=== PATIENT | male | born 1985 | race African-American/Black ===

== ENCOUNTER 2017-02-26 12:11 | Emergency (ER) | payer OTHER ==
--- NOTE | 2017-02-26 12:50 | EDM.PDOC ---
ED HPI GENERAL MEDICAL PROBLEM - General Chief Complaint: Skin Complaint Stated Complaint: BUMP ON RIGHT SIDE OF FACE Time Seen by Provider: 02/26/17 12:47 Source of Information: Reports: Patient History Limitations: Reports: No Limitations - History of Present Illness INITIAL COMMENTS - FREE TEXT/NARRATIVE: HISTORY AND PHYSICAL: []31-year-old male presenting with a lesion to the right side of his face History of Present Illness: []At does not complain of any pain to this area No weeping from the lesion Review of Systems: As per history of present illness and below otherwise all systems reviewed and negative. Past medical history: As per history of present illness and as reviewed below otherwise noncontributory. Surgical history: As per history of present illness and as reviewed below otherwise noncontributory. Social history: No reported history of drug or alcohol abuse. Family history: As per history of present illness and as reviewed below otherwise noncontributory. Physical exam: Alert and oriented male HEENT: Atraumatic, normocehpalic, pupils reactive, negative for conjunctival pallor or scleral icterus, mucous membranes moist, throat clear, neck supple, nontender, trachea midline. Right side of face cheek line firm nodule under the skin nontender upon palpation Lungs: Clear to auscultation, breath sounds equal bilaterally, chest non tender. Extremities: Atraumatic, negative for cords or calf pain. Neurovascular unremarkable. Neuro: Awake, alert, oriented. Cranial nerves II through XII unremarkable. Cerebellum unremarkable. Motor and sensory unremarkable throughout. Exam nonfocal. Diagnostics: [] Therapeutics: [] Impression: [Sebaceous cyst] Plan: [Moist heat may help to draw this to the surface will need to see a surgeon to have this removed] Definitive disposition and diagnosis as appropriate pending reevaluation and review of above. Onset: Gradual Duration: Day(s): Location: Reports: Face Severity: Mild - Related Data Allergies Allergy/AdvReac Type Severity Reaction Status Date / Time No Known Allergies Allergy Verified 02/26/17 12:46 Home Meds: Home Meds . [No Known Home Meds] 08/18/14 [History] Past Medical History - Past Health History Medical/Surgical History: Denies Medical/Surgical History Social & Family History - Tobacco Use Smoking Status *Q: Current Every Day Smoker Years of Tobacco use: 10 - Alcohol Use Days Per Week of Alcohol Use: 0 Number of Drinks Per Day: 2 Total Drinks Per Week: 0 - Recreational Drug Use Recreational Drug Use: No ED ROS GENERAL - Review of Systems Review Of Systems: ROS reveals no pertinent complaints other than HPI. ED EXAM, SKIN/RASH Exam: See Below (se dictation) Departure - Departure Time of Disposition: 12:49 Disposition: Home, Self-Care 01 Condition: Good Clinical Impression: Sebaceous cyst - Discharge Information Forms: ED Department Discharge
== END 2017-02-26 13:10 | disposition home or self-care (01) ==
LOC: MW.ED 12:11
CPT/HCPCS: 99282

== ENCOUNTER 2017-07-19 16:20 | Emergency (ER) | payer OTHER ==
--- NOTE | 2017-07-19 17:09 | EDM.PDOC ---
ED HPI GENERAL MEDICAL PROBLEM - General Chief Complaint: Upper Extremity Injury/Pain Stated Complaint: FALL/PAIN LT HAND Time Seen by Provider: 07/19/17 16:55 Source of Information: Reports: Patient History Limitations: Reports: No Limitations - History of Present Illness INITIAL COMMENTS - FREE TEXT/NARRATIVE: HISTORY AND PHYSICAL: History of present illness: [Patient comes to the emergency room complaining of pain to his left hand and index finger. He states that yesterday morning he punched a television which cut numerous areas to his index finger and hand. He complains of pain redness and swelling. He has not taken any medications for his symptoms. No medication allergies. He does not have diabetes or any medication allergies.] Review of systems: As per history of present illness and below otherwise all systems reviewed and negative. Past medical history: As per history of present illness and as reviewed below otherwise noncontributory. Surgical history: As per history of present illness and as reviewed below otherwise noncontributory. Social history: No reported history of drug or alcohol abuse. Family history: As per history of present illness and as reviewed below otherwise noncontributory. Physical exam: HEENT: Atraumatic, normocephalic. Left hand shows numerous old lacerations of varying length and depth to his left index finger and hand. Appear dirty, but dry. No drainage. Erythema and swelling is appreciated to second MCP joint. Sensation intact. Cap refill less than 2 seconds. Neuro: Awake, alert, oriented. Motor and sensory unremarkable throughout. Exam nonfocal. Diagnostics: [Left hand x-ray] Therapeutics: Bacitracin, Adacel Impression: [L hand injury L hand and index finger lacerations foreign body L index finger] Plan: [Discussed w/ patient that he has a foreign body present in his laceration, likely glass from TV screen, but no fracture seen on x-ray. Due to length of time from injury, will soak his hand in hibiclens, apply Bacitracin and wrap in gauze. Referral given to Dr. Casper Russo for hand evaluation early next week. Rx written for cephalexin 500mg (#30) si po TID 0 RF's. Tetanus updated in the ER.] Definitive disposition and diagnosis as appropriate pending reevaluation and review of above. Left Hand Pain Score (Numeric/FACES): 7 - Related Data Allergies Allergy/AdvReac Type Severity Reaction Status Date / Time No Known Allergies Allergy Verified 07/19/17 16:38 Home Meds: Home Meds . [No Known Home Meds] 08/18/14 [History] Past Medical History - Past Health History Medical/Surgical History: Denies Medical/Surgical History Social & Family History - Tobacco Use Smoking Status *Q: Current Some Day Smoker Years of Tobacco use: 15 Packs/Tins Daily: 0.2 - Caffeine Use Caffeine Use: Reports: None - Alcohol Use Days Per Week of Alcohol Use: 3 Number of Drinks Per Day: 2 Total Drinks Per Week: 6 - Recreational Drug Use Recreational Drug Use: No Review of Systems - Review of Systems Review Of Systems: ROS reveals no pertinent complaints other than HPI. ED EXAM, GENERAL - Physical Exam Exam: See Below Course - Vital Signs Last Recorded V/S: Last Vital Signs Temp 97.1 F 07/19/17 16:35 Pulse 75 07/19/17 16:35 Resp 16 07/19/17 16:35 BP 130/79 07/19/17 16:35 Pulse Ox 98 07/19/17 16:35 - Orders/Labs/Meds Orders: Active Orders 24 hr Category Date Time Status Vaccines to be Administered [RC] PER UNIT ROUTINE Care 07/19/17 18:23 Ordered Hand 2V Lt [CR] Stat Exams 07/19/17 16:55 Taken Diphth,Pertuss(Acell),Tet Vac [Adacel] Med 07/19/17 18:23 Once 0.5 ml IM .ONCE ONE Meds: Medications Discontinued Medications Generic Name Dose Route Start Last Admin Trade Name Jory PRN Reason Stop Dose Admin Bacitracin 1 dose 07/19/17 18:19 Bacitracin Oint 1 Gm TOP 07/19/17 18:20 ONETIME ONE Departure - Departure Time of Disposition: 18:25 Disposition: Home, Self-Care 01 Condition: Good Clinical Impression: Cellulitis of left hand, Laceration of left index finger - Discharge Information Referrals: PCP,None [Primary Care Provider] - Forms: ED Department Discharge Additional Instructions: The following information is given to patients seen in the emergency department who are being discharged to home. This information is to outline your options for follow-up care. We provide all patients seen in our emergency department with a follow-up referral. The need for follow-up, as well as the timing and circumstances, are variable depending upon the specifics of your emergency department visit. If you don't have a primary care physician on staff, we will provide you with a referral. We always advise you to contact your personal physician following an emergency department visit to inform them of the circumstance of the visit and for follow-up with them and/or the need for any referrals to a consulting specialist. The emergency department will also refer you to a specialist when appropriate. This referral assures that you have the opportunity for follow-up care with a specialist. All of these measure are taken in an effort to provide you with optimal care, which includes your follow-up. Under all circumstances we always encourage you to contact your private physician who remains a resource for coordinating your care. When calling for follow-up care, please make the office aware that this follow-up is from your recent emergency room visit. If for any reason you are refused follow-up, please contact the [facility] emergency department at and asked to speak to the emergency department charge nurse. [facility] Specialty care- Plastic Surgery Professional Building [address] [place] [address], [address] [place] [address] The above listed clinic will contact you on Friday to schedule an appointment for you. Keep your hand clean, dry, and loosely wrapped. Apply bacitracin ointment 3 times daily. Take antibiotics as prescribed. Return to ER as needed as discussed. - My Orders Last 24 Hours: My Active Orders 07/19/17 16:55 Hand 2V Lt [CR] Stat 07/19/17 18:23 Vaccines to be Administered [RC] PER UNIT ROUTINE Diphth,Pertuss(Acell),Tet Vac [Adacel] 0.5 ml IM .ONCE ONE - Assessment/Plan Last 24 Hours: My Active Orders 07/19/17 16:55 Hand 2V Lt [CR] Stat 07/19/17 18:23 Vaccines to be Administered [RC] PER UNIT ROUTINE Diphth,Pertuss(Acell),Tet Vac [Adacel] 0.5 ml IM .ONCE ONE
[2017-07-19] MEDS ORDERED: Bacitracin Oint 1 GM U/D Packet TOP ONE (18:19)
[2017-07-19] MEDS ORDERED: Diphtheria,Pertussis(Acell),Tetanus Vaccine 0.5 ML Syringe IM ONE (18:23)
[2017-07-19 19:21] VITALS: BP 140/96
--- NOTE | 2017-07-21 16:00 | CR ---
EXAM DATE: 07/19/17 PATIENT'S AGE: 32 Patient: JOSE MINER Facility: [place], [place] : 1985 Study: XRay Extremity Left HAND [id number] 5:20:27 PM Ordering Physician: TERRI ORTIZ NP Final Report: INDICATION: Trauma. TECHNIQUE: Two views of the left hand. COMPARISON: None. IMPRESSION: There is a 4 mm triangle shaped radiopaque foreign body seen along the dorsal and radial aspect of the head of the 2nd proximal phalanx. This may represent glass. No acute osseous abnormality is identified. Dictated by Korey Parks MD @ 07/19/2017 5:44:23 PM Dictated by: Korey Parks MD @ 07/19/2017 17:44:48 (Electronic Signature) Report Signed by Proxy. ELLIOT
== END 2017-07-19 19:19 | disposition home or self-care (01) ==
LOC: MW.ED 16:20
DX: S61.221A Laceration with foreign body of left index finger without damage to nail, initial encounter (principal); L03.114 Cellulitis of left upper limb; F17.210 Nicotine dependence, cigarettes, uncomplicated; Z23 Encounter for immunization; W25.XXXA Contact with sharp glass, initial encounter
CPT/HCPCS: 73120-26-LT; 73120-LT; 90471; 90715; 99283; 99283-25

== ENCOUNTER 2017-07-24 10:33 | Emergency (ER) | payer OTHER ==
[2017-07-24 10:43] VITALS: BP 132/92
--- NOTE | 2017-07-24 10:52 | EDM.PDOC ---
ED HPI GENERAL MEDICAL PROBLEM - General Chief Complaint: Upper Extremity Injury/Pain Stated Complaint: LT HAND HURTS Time Seen by Provider: 07/24/17 10:34 Source of Information: Reports: Patient History Limitations: Reports: No Limitations - History of Present Illness INITIAL COMMENTS - FREE TEXT/NARRATIVE: HISTORY AND PHYSICAL: History of present illness: Patient is a 32-year-old male who presents to the emergency room today with complaints of glass stuck in his left hand. He was seen on 07/19/2017 in the emergency room after punching a TV IA and was evaluated by the emergency room physician at that time. The x-ray shows a 4 mm triangle shape radiopaque foreign body along the dorsal and radial aspect of the head of the second proximal phalanx - with no fracture. The patient's tetanus was updated, was given a prescription for cephalexin and instructed to follow-up with Dr. Shanae Russo. The patient states that he did not fill his prescription as he does not have money to afford the antibiotic. He has been placing some over-the- counter cream, he is unsure of what its 4 or the name of this medication. He did have an appointment with Dr. Russo but failed to return her phone calls, the nurse states they called multiple times and left several messages to get him in before she left on vacation. The patient finally returned the phone call today and stated that his hand appears infected and wanted to see her now. Dr. Russo is unavailable and they instructed him to follow-up in the emergency room. Patient denies any fever, chills, excessive drainage from the wound sites, chest pain, shortness of breath. States that there is pain when flexing and extension of the fingers and grasping with the affected hand. Denies any numbness or tingling. Review of systems: As per history of present illness and below otherwise all systems reviewed and negative. Past medical history: As per history of present illness and as reviewed below otherwise noncontributory. Surgical history: As per history of present illness and as reviewed below otherwise noncontributory. Social history: No reported history of drug or alcohol abuse. Family history: As per history of present illness and as reviewed below otherwise noncontributory. Physical exam: HEENT: Atraumatic, normocephalic, pupils reactive, negative for conjunctival pallor or scleral icterus, mucous membranes moist, throat clear, neck supple, nontender, trachea midline. Lungs: Clear to auscultation, breath sounds equal bilaterally, chest nontender. Heart: S1S2, regular, negative for clicks, rubs, or JVD. Abdomen: Soft, nondistended, nontender. Negative for masses or hepatosplenomegaly. Negative for costovertebral tenderness. Pelvis: Stable nontender. Genitourinary: Deferred. Rectal: Deferred. Extremities: Injury occurred 07/19/2017 of the left hand. There does appear to be healing lacerations to the second proximal phalanx and dorsal aspect of the hand. There is some tacky purulent exudate noted along the laceration sites. It is tender to touch. Has full flexion and extension of his fingers. Able to press and resist force on all digits. Capillary refill less than 3 seconds. Strong radial pulse. + CMS. Neurovascular unremarkable. Neuro: Awake, alert, oriented. Cranial nerves II through XII unremarkable. Cerebellum unremarkable. Motor and sensory unremarkable throughout. Exam nonfocal. Digital block was done to explore the wound for the foreign body (glass). Area was cleansed and an #11 blade was used to reopen the lacerated area. I asked Dr Welch to assist, as I was unable to find any FB. No foreign body was found. Will order left hand x-ray to see if foreign body is still visible or if it has migrated. The repeat x-ray does show radiopaque foreign body in the same spot as previous. Dr. Welch was able to extract a thin piece of years to look like tinfoil from the wound. Hand will be re-x-rayed to make sure that the foreign body is completely resolved. Bacitracin nonstick dressing applied to the area. Patient received Rocephin while in the ER. He still has his prescription for cephalexin which I have advised him to fill and take. Small amount of tramadol has been prescribed to the patient for pain management, 6 tabs no refill. Advised him not to take this while working or needing to be functioning/driving. If he continues to have problems it did inform him he needs to follow-up with . He voices understanding and is agreeable to plan of care. He denies any further questions at this time. Diagnostics: X-ray left hand Therapeutics: Digital block Rocephin injection Impression: Wound infection Plan: 1. Please keep the wound clean and dry. Continue to monitor for signs of infection. You did receive Rocephin (antibiotic) while in the emergency room. Please fill your prescription for cephalexin that you received on 07/19/2017. 2. A small amount of tramadol has been prescribed for you. You may take 1 tab every 4-6 hours as needed for pain. I would like you to hold this for nighttime use only. This medication may make you drowsy so do not take it while needing to be functioning at work, taking care of her child, or driving. 3. If he continued to have problems please follow-up with . Return to the ED as needed and as discussed. Definitive disposition and diagnosis as appropriate pending reevaluation and review of above. Onset Date: 07/19/17 Duration: Day(s): Location: Reports: Upper Extremity, Left Treatments TREATER: Reports: Other (see below) (An [id number] cream -unknown name/product) Left Hand Pain Score (Numeric/FACES): 4 - Related Data Allergies Allergy/AdvReac Type Severity Reaction Status Date / Time No Known Allergies Allergy Verified 07/24/17 10:41 Home Meds: Home Meds . [No Known Home Meds] 08/18/14 [History] Past Medical History - Past Health History Medical/Surgical History: Denies Medical/Surgical History HEENT History: Reports: None Cardiovascular History: Reports: None Respiratory History: Reports: None Gastrointestinal History: Reports: None Genitourinary History: Reports: None Musculoskeletal History: Reports: None Neurological History: Reports: None Psychiatric History: Reports: None Endocrine/Metabolic History: Reports: None Hematologic History: Reports: None Immunologic History: Reports: None Oncologic (Cancer) History: Reports: None Dermatologic History: Reports: None - Infectious Disease History Infectious Disease History: Reports: Chicken Pox - Past Surgical History Head Surgeries/Procedures: Reports: None HEENT Surgical History: Reports: None Cardiovascular Surgical History: Reports: None Respiratory Surgical History: Reports: None GI Surgical History: Reports: None Male Surgical History: Reports: None Endocrine Surgical History: Reports: None Neurological Surgical History: Reports: None Musculoskeletal Surgical History: Reports: None Oncologic Surgical History: Reports: None Dermatological Surgical History: Reports: None Social & Family History - Family History Family Medical History: Noncontributory - Tobacco Use Smoking Status *Q: Current Every Day Smoker Years of Tobacco use: 18 Packs/Tins Daily: 0.5 - Caffeine Use Caffeine Use: Reports: Soda, Tea - Alcohol Use Days Per Week of Alcohol Use: 3 Number of Drinks Per Day: 2 Total Drinks Per Week: 6 - Recreational Drug Use Recreational Drug Use: No Review of Systems - Review of Systems Review Of Systems: ROS reveals no pertinent complaints other than HPI. ED EXAM, GENERAL - Physical Exam Exam: See Below (See dictation) Course - Vital Signs Last Recorded V/S: Last Vital Signs Temp 97.2 F 07/24/17 10:41 Pulse 54 L 07/24/17 10:41 Resp 18 07/24/17 10:41 BP 132/92 H 07/24/17 10:41 Pulse Ox 100 07/24/17 10:41 - Orders/Labs/Meds Orders: Active Orders 24 hr Category Date Time Status Hand 2V Lt [CR] Stat Exams 07/24/17 11:35 Taken Hand 2V Lt [CR] Stat Exams 07/24/17 12:41 Ordered Meds: Medications Discontinued Medications Generic Name Dose Route Start Last Admin Trade Name Freq PRN Reason Stop Dose Admin Bacitracin 1 dose 07/24/17 11:09 07/24/17 11:24 Bacitracin Oint 1 Gm TOP 07/24/17 11:10 1 dose ONETIME ONE Administration Ceftriaxone Sodium 1,000 mg/ 4 mls @ 4 mls/sec 07/24/17 11:09 07/24/17 11:24 Lidocaine HCl IM 07/24/17 11:10 2.1 mls/sec ONETIME ONE Administration Lidocaine HCl 5 ml 07/24/17 11:09 07/24/17 11:25 Xylocaine-Mpf 1% INJECT 07/24/17 11:10 Not Given ONETIME ONE Lidocaine HCl 20 ml 07/24/17 11:09 07/24/17 11:23 Xylocaine 1% INJECT 07/24/17 11:10 20 ml ONETIME ONE Administration Departure - Departure Time of Disposition: 12:44 Disposition: Home, Self-Care 01 Clinical Impression: Infected wound - Discharge Information Referrals: PCP,None [Primary Care Provider] - Forms: ED Department Discharge Additional Instructions: My general discharge The following information is given to patients seen in the emergency department who are being discharged to home. This information is to outline your options for follow-up care. We provide all patients seen in our emergency department with a follow-up referral. The need for follow-up, as well as the timing and circumstances, are variable depending upon the specifics of your emergency department visit. If you don't have a primary care physician on staff, we will provide you with a referral. We always advise you to contact your personal physician following an emergency department visit to inform them of the circumstance of the visit and for follow-up with them and/or the need for any referrals to a consulting specialist. The emergency department will also refer you to a specialist when appropriate. This referral assures that you have the opportunity for follow-up care with a specialist. All of these measure are taken in an effort to provide you with optimal care, which includes your follow-up. Under all circumstances we always encourage you to contact your private physician who remains a resource for coordinating your care. When calling for follow-up care, please make the office aware that this follow-up is from your recent emergency room visit. If for any reason you are refused follow-up, please contact the [facility] Emergency Department at and asked to speak to the emergency department charge nurse. [facility] Specialty Care - Plastic Surgery Professional Building [address] [place] [address], [address] [place] [address] [facility] [address] [place] [address] 1. Please keep the wound clean and dry. Continue to monitor for signs of infection. You did receive Rocephin (antibiotic) while in the emergency room. Please fill your prescription for cephalexin that you received on 07/19/2017. 2. A small amount of tramadol has been prescribed for you. You may take 1 tab every 4-6 hours as needed for pain. I would like you to hold this for nighttime use only. This medication may make you drowsy so do not take it while needing to be functioning at work, taking care of her child, or driving. 3. If he continued to have problems please follow-up with . Return to the ED as needed and as discussed. - My Orders Last 24 Hours: My Active Orders 07/24/17 11:35 Hand 2V Lt [CR] Stat 07/24/17 12:41 Hand 2V Lt [CR] Stat - Assessment/Plan Last 24 Hours: My Active Orders 07/24/17 11:35 Hand 2V Lt [CR] Stat 07/24/17 12:41 Hand 2V Lt [CR] Stat
[2017-07-24] MEDS ORDERED: Lidocaine 1% 20 ML MDV INJECT ONE (11:09)
[2017-07-24] MEDS ORDERED: cefTRIAXone 1,000 MG in Lidocaine 1% 4 ML IM ONE (11:09)
[2017-07-24] MEDS ORDERED: Bacitracin Oint 1 GM U/D Packet TOP ONE (11:09)
--- NOTE | 2017-07-24 13:33 | CR ---
EXAM DATE: 07/24/17 PATIENT'S AGE: 32 Patient: JOSE MINER Facility: [place], [place] Site . Site : 1985 Study: XRay Extremity Left Hand [id number]/14/2017 11:57:51 AM Ordering Physician: Doctor Cui Final Report: Indication: 2nd finger injury Technique: Left hand 2 views Comparison: 07/19/2017. Findings: No changes from the prior exam. Small bone fragment or soft tissue foreign body adjacent to the distal aspect of the proximal phalanx of the 2nd finger with adjacent soft tissue prominence is unchanged. No other osseous or soft tissue abnormality. Joint spaces are normal. Dictated by Guru Plata MD @ 07/24/2017 12:32:06 PM Dictated by: Guru Plata MD @ 07/24/2017 12:32:19 (Electronic Signature) Report Signed by Proxy. ELLIOT
--- NOTE | 2017-07-24 13:34 | CR ---
EXAM DATE: 07/24/17 PATIENT'S AGE: 32 Patient: JOSE MINER Facility: [place], [place] Site . Site : 1985 Study: XRay Extremity Left [id number]/14/2017 12:53:51 PM Ordering Physician: Doctor Cui Final Report: HISTORY: Foreign body removal. FINDINGS: Two views of the left hand are compared with 24 July 2017 at 11:44 hours. The triangular-shaped density seen along the radial aspect of the proximal phalanx of the index finger has been removed. No fracture is seen. IMPRESSION: Removal of radiopaque foreign body 2nd finger. No residual abnormality or fracture. Dictated by Shahana Bartholomew MD @ 07/24/2017 1:15:29 PM Dictated by: Shahana Bartholomew MD @ 07/24/2017 13:15:32 (Electronic Signature) Report Signed by Proxy. ELLIOT
== END 2017-07-24 13:08 | disposition home or self-care (01) ==
LOC: MW.ED 10:33
DX: S61.422A Laceration with foreign body of left hand, initial encounter (principal); L08.9 Local infection of the skin and subcutaneous tissue, unspecified; F17.210 Nicotine dependence, cigarettes, uncomplicated; W22.8XXA Striking against or struck by other objects, initial encounter
CPT/HCPCS: 10120; 73120; 96372; 99283; J0696; 99284

== ENCOUNTER 2017-12-05 07:12 | Emergency (ER) | payer SELFPAY ==
[2017-12-05] MEDS ORDERED: Azithromycin 250 MG Tab PO ONE (07:34)
[2017-12-05] MEDS ORDERED: cefTRIAXone 250 MG in Lidocaine 1% 1 ML IM ONE (07:34)
--- NOTE | 2017-12-05 07:41 | EDM.PDOC ---
ED HPI GENERAL MEDICAL PROBLEM - General Chief Complaint: Genitourinary Problem Stated Complaint: INFECTION Time Seen by Provider: 12/05/17 07:18 - History of Present Illness INITIAL COMMENTS - FREE TEXT/NARRATIVE: HISTORY AND PHYSICAL: History of present illness: The patient is a healthy 32-year-old male who presents with 2 days complaints of pain with urination pain at the penis with a sore and yesterday had a yellow drainage from his penis. Patient has had an STD in the past which was chlamydia and he was treated and says he did have unprotected sex with an anonymous partner one time recently. He has no contact with the persons who is not sure if he was exposed. Patient has no systemic complaints of fever chills abdominal pain vomiting or diarrhea and has no flank pain. Patient has no local medical provider. He says that there is a sore on the tip of his penis which is very painful has no testicular pain or swelling. Review of systems: As per history of present illness and below otherwise all systems reviewed and negative. Past medical history: As per history of present illness and as reviewed below otherwise noncontributory. Surgical history: As per history of present illness and as reviewed below otherwise noncontributory. Social history: No reported history of drug or alcohol abuse. Family history: As per history of present illness and as reviewed below otherwise noncontributory. Physical exam: HEENT: Atraumatic, normocephalic, negative for conjunctival pallor or scleral icterus, mucous membranes moist, throat clear, neck supple, nontender, trachea midline. Lungs: Clear to auscultation, breath sounds equal bilaterally, chest nontender. Heart: S1S2, regular rate and rhythm no overt murmurs Abdomen: Soft, nondistended, nontender. NABS Pelvis: Deferred Genitourinary: Testicles are descended bilaterally and there is no gross inguinal adenopathy. At the tip of the head of the penis just superior to the urethra there is a vesicular lesion with some surrounding erythema and exquisite tenderness. Rectal: Deferred. Extremities: Atraumatic, negative for cords or calf pain. Neurovascular unremarkable. Neuro: Awake, alert, oriented. Cranial nerves II through XII unremarkable. Cerebellum unremarkable. Motor and sensory unremarkable throughout. Exam nonfocal. Diagnostics: Urine for gonorrhea and chlamydia--- the patient specifically asked for testing despite that we will be treating him Therapeutics: Rocephin and Zithromax I discussed with this patient that this lesion that we are seeing on his penis is vesicular and is very consistent with a herpes lesion. It is difficult to test this area due to the discomfort and location so we'll treat him with medication as a first time herpes of break and refer him to urology and primary care for follow-up. He seems a bit overwhelmed and somewhat confused despite nursing and my attempts to explain this to him. He is been advised to refrain from sexual intercourse until he finishes the 10 day treatment. Impression: Urethritis, abnormal penile lesion consistent with herpes Definitive disposition and diagnosis as appropriate pending reevaluation and review of above. Penis Pain Score (Numeric/FACES): 8 - Related Data Allergies Allergy/AdvReac Type Severity Reaction Status Date / Time No Known Allergies Allergy Verified 12/05/17 07:25 Home Meds: Home Meds . [No Known Home Meds] 08/18/14 [History] Past Medical History - Past Health History Medical/Surgical History: Denies Medical/Surgical History HEENT History: Reports: None Cardiovascular History: Reports: None Respiratory History: Reports: None Gastrointestinal History: Reports: None Genitourinary History: Reports: None Musculoskeletal History: Reports: None Neurological History: Reports: None Psychiatric History: Reports: None Endocrine/Metabolic History: Reports: None Hematologic History: Reports: None Immunologic History: Reports: None Oncologic (Cancer) History: Reports: None Dermatologic History: Reports: None - Infectious Disease History Infectious Disease History: Reports: Chicken Pox - Past Surgical History Head Surgeries/Procedures: Reports: None HEENT Surgical History: Reports: None Cardiovascular Surgical History: Reports: None Respiratory Surgical History: Reports: None GI Surgical History: Reports: None Male Surgical History: Reports: None Endocrine Surgical History: Reports: None Neurological Surgical History: Reports: None Musculoskeletal Surgical History: Reports: None Oncologic Surgical History: Reports: None Dermatological Surgical History: Reports: None Social & Family History - Family History Family Medical History: Noncontributory - Tobacco Use Smoking Status *Q: Current Every Day Smoker Years of Tobacco use: 10 Packs/Tins Daily: 0.2 - Caffeine Use Caffeine Use: Reports: Soda, Tea - Alcohol Use Days Per Week of Alcohol Use: 3 Number of Drinks Per Day: 2 Total Drinks Per Week: 6 - Recreational Drug Use Recreational Drug Use: No ED ROS GENERAL - Review of Systems Review Of Systems: ROS reveals no pertinent complaints other than HPI. ED EXAM, GENERAL - Physical Exam Exam: See Below (See dictation) Course - Vital Signs Last Recorded V/S: Last Vital Signs Temp 37.1 C 12/05/17 07:24 Pulse 77 12/05/17 07:24 Resp 18 12/05/17 07:24 BP 149/95 H 12/05/17 07:24 Pulse Ox 96 12/05/17 07:24 - Orders/Labs/Meds Orders: Active Orders 24 hr Category Date Time Status CHLAMYDIA AND GONORRHEA BY [facility] Stat Lab 12/05/17 07:34 Ordered Meds: Medications Discontinued Medications Generic Name Dose Route Start Last Admin Trade Name Freq PRN Reason Stop Dose Admin Azithromycin 1,000 mg 12/05/17 07:34 Zithromax PO 12/05/17 07:35 ONETIME ONE Ceftriaxone Sodium 250 mg/ 1 mls @ 1 mls/sec 12/05/17 07:34 Lidocaine HCl IM 12/05/17 07:35 ONETIME ONE Departure - Departure Time of Disposition: 07:39 Disposition: Home, Self-Care 01 Condition: Good Clinical Impression: Urethritis, Herpes genitalis in men - Discharge Information Referrals: PCP,None [Primary Care Provider] - Additional Instructions: The following information is given to patients seen in the emergency department who are being discharged to home. This information is to outline your options for follow-up care. We provide all patients seen in our emergency department with a follow-up referral. The need for follow-up, as well as the timing and circumstances, are variable depending upon the specifics of your emergency department visit. If you don't have a primary care physician on staff, we will provide you with a referral. We always advise you to contact your personal physician following an emergency department visit to inform them of the circumstance of the visit and for follow-up with them and/or the need for any referrals to a consulting specialist. The emergency department will also refer you to a specialist when appropriate. This referral assures that you have the opportunity for followup care with a specialist. All of these measure are taken in an effort to provide you with optimal care, which includes your followup. Under all circumstances we always encourage you to contact your private physician who remains a resource for coordinating your care. When calling for followup care, please make the office aware that this follow-up is from your recent emergency room visit. If for any reason you are refused follow-up, please contact the [facility] emergency department at and ask to speak to the emergency department charge nurse. [facility] Primary care- Internal Medicine and Family [address] [place] [id number] [facility] Specialty Care-Urology [address] [place] [id number] Please take medications as prescribed until you are finished area please refrain from any sexual intercourse until you're finished with this medication. After that time please always use protection. Push hydration and please call and follow-up with one of our providers using the resources given to above for further care and evaluation. Return to ER as needed and as discussed - My Orders Last 24 Hours: My Active Orders 12/05/17 07:34 [facility] Stat - Assessment/Plan Last 24 Hours: My Active Orders 12/05/17 07:34 CHLAMYDIA AND GONORRHEA BY [facility] Stat
[2017-12-05 08:10] VITALS: BP 123/89
== END 2017-12-05 08:05 | disposition home or self-care (01) ==
LOC: MW.ED 07:12
DX: N34.2 Other urethritis (principal); A60.00 Herpesviral infection of urogenital system, unspecified; F17.210 Nicotine dependence, cigarettes, uncomplicated
CPT/HCPCS: 87491; 87591; 99283; A9270; J0696; J2001

== ENCOUNTER 2022-12-04 14:18 | Emergency (ER) | payer SELFPAY ==
[2022-12-04] MEDS ORDERED: Ondansetron 4 MG Tab.DIS PO ONE (15:40)
[2022-12-04 16:17] LABS: POTASSIUM,K 4.6 mmol/L (3.5-5.1)
[2022-12-04 16:58] VITALS: BP 115/91; PULSE 69
== END 2022-12-04 16:59 ==
LOC: MW.ED 14:18
DX: A08.4 Viral intestinal infection, unspecified (principal); D72.819 Decreased white blood cell count, unspecified
CPT/HCPCS: 36415; 80053; 81001; 83690; 85025; 99285; A9270

== ENCOUNTER 2024-03-18 17:43 | Emergency (ER) | payer SELFPAY ==
[2024-03-18] MEDS: Lidocaine 2% Viscous Solution 15 ML UD PO ONE (18:25)
[2024-03-18] MEDS: Ketorolac 30 MG/ML SDV IM STA (18:25)
[2024-03-18] MEDS: Benzocaine 20% Topical Spray UD MUCMEM ONE (18:26)
[2024-03-18 18:59] VITALS: BP 127/86; PULSE 65
== END 2024-03-18 18:51 | disposition home or self-care (01) ==
LOC: MW.ED 17:43
DX: K04.7 Periapical abscess without sinus (principal)
CPT/HCPCS: 96372; 99283; A9270-GY; J1885

== ENCOUNTER 2024-06-11 11:32 | Emergency (ER) | payer OTHER ==
[2024-06-11 13:13] VITALS: BP 121/83; PULSE 63
== END 2024-06-11 13:10 | disposition home or self-care (01) ==
LOC: MW.ED 11:32
DX: H10.9 Unspecified conjunctivitis (principal); Z79.2 Long term (current) use of antibiotics; Z79.891 Long term (current) use of opiate analgesic; Z79.899 Other long term (current) drug therapy; Z75.8 Other problems related to medical facilities and other health care
CPT/HCPCS: 99283

== ENCOUNTER 2024-07-25 23:09 | Emergency (ER) | payer OTHER ==
[2024-07-25 23:15] VITALS: BP 143/102; PULSE 89
[2024-07-25] MEDS: Acetaminophen/HYDROcodone 325-10 MG Tab PO STA (23:37)
[2024-07-25] MEDS: Amoxicillin/Clavulanate K 875-125 MG Tab PO ONE (23:37)
== END 2024-07-25 23:45 | disposition home or self-care (01) ==
LOC: MW.ED 23:09
DX: S02.5XXA Fracture of tooth (traumatic), initial encounter for closed fracture (principal); K02.9 Dental caries, unspecified; F17.210 Nicotine dependence, cigarettes, uncomplicated; Z79.899 Other long term (current) drug therapy; X58.XXXA Exposure to other specified factors, initial encounter
CPT/HCPCS: 99282; A9270